=== PATIENT | male | born 1945 | race Two or more races ===

== ENCOUNTER 2021-12-18 10:15 | Inpatient (IN) | payer OTHER ==
[~2021-12-18] VITALS: Ht 175.3 cm; Wt 78.9 kg
[2021-12-22] MEDS ORDERED: FENTANYL1 EAC3 (08:09)
[2021-12-22] MEDS ORDERED: LORAZEPAM0.5 MG (08:09)
[2022-01-01] MEDS ORDERED: CIPRO500 MG PO (16:24)
[2022-01-01] MEDS ORDERED: INTEGRA PLUS C1 EACH PO (16:25)
[2022-01-01] MEDS ORDERED: METRONIDAZOLE500 MG PO (16:25)
[2022-01-01] MEDS ORDERED: PERCOCET 5-3251 EACH PO (16:27)
== END 2022-01-01 22:36 | disposition home or self-care (01) | DRG 330 ==
LOC: ADM 10:15 → EDSTATUS 10:15 → SURG 12-22 05:48 → O/R 12-22 05:48 → SURH 12-22 10:15 → SURG 12-22 13:06 → SURH 12-25 21:12
PROVIDERS: ADMIT Surgery; ATTEND Surgery
PROC: 0DTP4ZZ Resection of Rectum, Percutaneous Endoscopic Approach (ICD-10-PCS; 2021-12-22)
PROC: 0DTN4ZZ Resection of Sigmoid Colon, Percutaneous Endoscopic Approach (ICD-10-PCS; 2021-12-22)
PROC: 07BC4ZZ Excision of Pelvis Lymphatic, Percutaneous Endoscopic Approach (ICD-10-PCS; 2021-12-22)
PROC: 0D1B4Z4 Bypass Ileum to Cutaneous, Percutaneous Endoscopic Approach (ICD-10-PCS; principal; 2021-12-22 07:45)
PROC: 4A12X4Z Monitoring of Cardiac Electrical Activity, External Approach (ICD-10-PCS; 2021-12-23)
DX: C20 Malignant neoplasm of rectum (principal); K62.5 Hemorrhage of anus and rectum; R45.851 Suicidal ideations; K62.89 Other specified diseases of anus and rectum; R59.0 Localized enlarged lymph nodes; Z20.822 Contact with and (suspected) exposure to COVID-19; F43.23 Adjustment disorder with mixed anxiety and depressed mood; D72.828 Other elevated white blood cell count; Z92.3 Personal history of irradiation; Z92.21 Personal history of antineoplastic chemotherapy